=== PATIENT | male | born 1985 | race Caucasian/White ===

== ENCOUNTER 2021-01-02 07:53 | Outpatient (CLI) | payer OTHER, SELFPAY ==
[2021-01-02 08:35] LABS: Basophils Absolute Auto 0.1 K/mm3 (0.0-0.1); Basophils Percent Auto 0.7 % (0.2-1.2); Eosinophils Absolute Auto 0.4 K/mm3 (0-0.3); Eosinophils Percent Auto 4.8 % (0-4.4); Hematocrit 48.2 % (42.0-52.0); Hemoglobin 16.1 g/dL (14.0-18.0); Immature Granulocyte Absolute 0.03 K/mm3 (0.00-0.031); Immature Granulocyte Percent A 0.4 % (0-0.5); Lymphocytes Absolute Auto 2.39 K/mm3 (0.9-3.2); Lymphocytes Percent Auto 28.9 % (18.3-44.2); Mean Corpuscular HGB Conc 33.4 g/dl (32-36); Mean Corpuscular Hemoglobin 29.2 pg (26-34); Mean Corpuscular Volume 87.5 fl (80-100); Mean Platelet Volume 10.8 fl (7.4-10.4); Monocytes Absolute Auto 0.7 K/mm3 (0.1-0.6); Monocytes Percent Auto 8.4 % (2.6-8.5); Neutrophils Absolute Auto 4.7 K/mm3 (1.3-6.7); Neutrophils Percent Auto 56.8 % (45.5-73.1); Platelet Count Result 234 k/mm3 (150-375); Red Blood Count 5.51 M/mm3 (4.6-6.20); Red Cell Distribution Width 12.6 % (11.5-14.5); White Blood Count 8.3 K/mm3 (4.5-10.0)
[2021-01-02 08:36] LABS: Add Urine Microscopic? NO; Appearance Urine Clear (Clear); Bilirubin Urine Negative (Negative); Blood Urine Negative (Negative); Color Urine Yellow (Yellow); Glucose Urine UA Negative (Negative); Ketones Urine Negative (Negative); Leukocyte Esterase Ur Negative LEU/UL (NEGATIVE); Nitrate Urine Negative (Negative); Protein Urine Negative (Negative); Specific Grav Ur 1.023 (1.001-1.035); Urobilinogen Urine Negative mg/dL (<2.0)
[2021-01-02 08:46] LABS: Hemoglobin A1C 5.6 % (<5.7)
[2021-01-02 08:47] LABS: Alanine Aminotransferase 45 U/L (4-50); Albumin Level 4.4 g/dL (3.5-5.1); Alkaline Phosphatase 66 U/L (38-126); Amylase 75 U/L (30-110); Anion Gap 7 mmol/L (8-16); Aspartate Amino Transferase 26 U/L (17-59); Bilirubin,Total 0.3 mg/dL (0.2-1.3); Blood Urea Nitrogen 14 mg/dL (9-20); Calcium 10.1 mg/dL (8.4-10.2); Carbon Dioxide 28 mmol/L (22-30); Chloride 108 mmol/L (98-107); Estimated Glomerular Filt Rate > 60; Glucose 117 mg/dL (75-110); Lipase 125 U/L (23-300); Sodium 143 mmol/L (137-145)
== END 2021-01-02 07:54 | disposition home or self-care (01) ==
PROVIDERS: PCP Family Medicine; Visit Provider Physician Assistant
DX: R10.9 Unspecified abdominal pain (principal); R73.01 Impaired fasting glucose
CPT/HCPCS: 36415; 80053; 81003; 82150; 83036; 83690; 84443; 85025; 87086

== ENCOUNTER → 2021-01-10 10:11 | Outpatient (CLI) | payer OTHER, SELFPAY ==
--- NOTE | ~2021-01-10 | CT_ITS ---
EXAMINATION: CT abdomen pelvis w con DATE: 01/10/2021 10:34 INDICATION: Abdominal pain TECHNIQUE: Computed tomography (CT) of the abdomen and pelvis was performed with 100 cc Omnipaque 350 intravenous contrast. The dose-length product was 1156.87 mGy-cm. Automated exposure control and ite rative reconstruction technique were employed. COMPARISON: CT dated 02/18/2019 FINDINGS: Lung bases are unremarkable. Heart size normal. No significant pleural or pericardial effus ion. No significant vascular abnormality. No lymphadenopathy. Fatty infiltration of the liver. Gallbladder is present. The spleen, pancreas, adrenal glands and kid neys are unremarkable. Nonobstructive bowel gas pattern. Normal appendix. No free air or free fluid. No acute bone or joint abnormality. IMPRESSION: 1. No acute abdominal abnormality. Reviewed, dictated and finalized at location B.
== END ==
PROVIDERS: PCP Family Medicine; Visit Provider Physician Assistant
DX: R10.9 Unspecified abdominal pain (principal)
CPT/HCPCS: 74177; Q9967

== ENCOUNTER 2022-02-09 02:57 | Emergency (ER) | payer OTHER, SELFPAY ==
[2022-02-09 03:01] VITALS: BP 175/114; PULSE 77; RESP 18; TEMP 36.3; O2SAT 98
[2022-02-09] MEDS: HYDROcodone/acetaminophen (*CRX) 5-325 MG TABLET 1 TAB PO (03:16)
[2022-02-09] MEDS: NEOMYCIN/POLYMYXIN/HYDROCORT OT SUSP 10 ML BTL (*BKC) 3 DROP LEFT EAR (03:33)
--- NOTE | 2022-02-09 03:38 | ED.EAR ---
HPI - Ear Problem General Chief complaint: Ear Stated complaint: ear pain Time Seen by Provider: 02/09/22 03:04 Source: RN notes reviewed History of Present Illness HPI Narrative: Patient presents emergency department from home for left ear pain. Patient states that last week he was [place] and he states he began to have some aching in his ear this past Friday the became worse over the past several days. He had gone to his primary care physician today is diagnosed with otitis externa started on eardrops as well as oral antibiotics states has been using the eardrops and antibiotics with the pain became worse this evening and came to the ER for further evaluation states he had taken ibuprofen at home he denies any fevers or chills rhinorrhea sore throat or any other symptoms Related Data Allergies Allergy/AdvReac Type Severity Reaction Status Date / Time No Known Allergies Allergy Verified 02/09/22 03:05 Review of Systems Review of Systems: Gen.: Denies fevers or chills HEENT: See HPI Respiratory: Denies cough Neuro: Denies numbness, tingling, weakness Skin: Denies rash Endo: Denies DM Except as documented, all other systems reviewed and negative [facility] Past Medical History Medical History Multiple fractures of ribs, right side, initial encounter for closed fracture Social History Social History Social History: Smoking status: Former smoker Tobacco type: cigarettes Second hand tobacco smoke exposure: No Smoking end date: 08/04/16 Additional smoking assessment comments: Pt is a social smoker. Alcohol intake: current Drinks per week: 8 Substance use: current Substance use type: marijuana Last use: Pt smoked marijuana this morning. Gender identity (if verbalized by the patient): Male Sexual Orientation (if Verbalized by the Patient): Straight or Heterosexual Exam Narrative: APPEARANCE: No acute distress, nontoxic, resting in bed EYES: EOMI HEENT: Normocephalic, atraumatic, right TM is normal appearance, the left ear hurts with pulling on the earlobe the ear canal is severely swollen and unable to visualize the tympanic membrane nares patent oral mucosa moist RESPIRATORY: No respiratory distress MUSCULOSKELETAl: Moves all extremities. NEURO: Awake and alert. Following commands, speech normal, no focal deficits SKIN:: Warm, dry. No rashes lesions or abrasions PSYCHIATRIC: Normal affect/mood, Course Course Emergency Course: Reviewed old records the patient was seen today and was prescribed Augmentin p.o. as well as Cortisporin attic Procedure note: A ear wick was placed in the left ear patient tolerated the procedure well Discussed with patient results of workup and diagnosis. Discussed need for follow-up with primary care, proper use of medication, and reasons to return to the emergency department. Patient understands and agrees to current treatment plan discussed with patient need to continue to use eardrops as prescribed Vital Signs Vital signs: Vital Signs Temperature 97.4 F L 02/09/22 03:01 Pulse Rate 77 02/09/22 03:01 Respiratory Rate 18 02/09/22 03:01 Blood Pressure 175/114 H 02/09/22 03:01 Pulse Oximetry 98 02/09/22 03:01 Oxygen Delivery Room Air 02/09/22 03:01 Temperature 97.4 F L 02/09/22 03:01 Pulse Rate 77 02/09/22 03:01 Respiratory Rate 18 02/09/22 03:01 Blood Pressure 175/114 H 02/09/22 03:01 Pulse Oximetry 98 02/09/22 03:01 Oxygen Delivery Room Air 02/09/22 03:01 Medical Decision Making Vital Signs Vital Signs: Vital Signs Temperature 97.4 F L 02/09/22 03:01 Pulse Rate 77 02/09/22 03:01 Respiratory Rate 18 02/09/22 03:01 Blood Pressure 175/114 H 02/09/22 03:01 Pulse Oximetry 98 02/09/22 03:01 Oxygen Delivery Room Air 02/09/22 03:01 Temperature 97.4 F L 02/09/22 03:01 P
== END 2022-02-09 03:49 | disposition home or self-care (01) ==
PROVIDERS: Emergency Provider Emergency Medicine; PCP Family Medicine
DX: H60.92 Unspecified otitis externa, left ear (principal); F17.210 Nicotine dependence, cigarettes, uncomplicated
CPT/HCPCS: 99283; A9270

== ENCOUNTER 2022-12-18 08:46 | Emergency (ER) | payer OTHER, SELFPAY ==
[2022-12-18] VITALS (9 sets, daily range): BP systolic 132–156; BP diastolic 72–88; PULSE 68–94; RESP 11–18; TEMP 36.7; O2SAT 98–100
--- NOTE | ~2022-12-18 | CT_ITS ---
EXAMINATION: CT abdomen pelvis w con DATE: 12/18/2022 10:01 INDICATION: Right upper quadrant abdominal pain. TECHNIQUE: Computed tomography (CT) of the abdomen and pelvis was performed with 100 mL Omnipaque 350 intravenous contrast. Automated exposure control and iterative reconstruction technique were employe d. The dose-length product was 1399.66 mGy-cm. COMPARISON: CT abdomen and pelvis 01/10/2021 FINDINGS: The visualized portions of the lung bases demonstrate minimal atelectasis on the left. No p leural effusion. The heart size is normal. No pericardial effusion. There is a 7 mm cyst in the liver . There is diffuse hepatic steatosis. The spleen, pancreas, and left adrenal gland are normal. There is an 8 mm mass of fat in right adrenal gland, consistent with a myelolipoma. The kidneys are normal. There are bilateral inguinal hernias containing fat. There are no dilated loops of bowel. The append ix is normal. There are no pathologically enlarged lymph nodes. There is no free intraperitoneal flui d. There is mild thoracic and lumbar spondylosis. IMPRESSION: 1. Diffuse hepatic steatosis. 2. Bilateral inguinal hernias containing fat. Reviewed, dictated and finalized at location A.
--- NOTE | ~2022-12-18 | US_ITS ---
US abdomen limited INDICATION: Right upper quadrant pain. Steatosis. PROCEDURE: Realtime right upper abdominal ultrasound. COMPARISON: No prior studies for comparison. FINDINGS: The pancreas is normal without focal mass or pancreatic ductal dilation. Liver echotexture is increased, consistent with fatty infiltration. There is normal directional flow in the portal ve in. The gallbladder is normal without stones, gallbladder wall thickening or pericholecystic fluid. Comm on bile duct measures 4 mm. No sonographic Farrar's sign. IMPRESSION: 1: Hepatic steatosis. Reviewed, dictated and finalized at location B. IMPRESSION: 1: Hepatic steatosis.
--- NOTE | ~2022-12-18 | XR_ITS ---
EXAMINATION: XR chest 2V 12/18/2022 09:12 INDICATION: Right chest pain PROCEDURE: 2 view chest COMPARISON: 09/07/2009 FINDINGS: The lungs are clear. The cardiomediastinal silhouette is within normal limits. There are no pleural effusions. There is no pneumothorax suspected. IMPRESSION: 1: NO ACUTE CARDIOPULMONARY DISEASE. Reviewed, dictated and finalized at location B.
--- NOTE | 2022-12-18 08:47 | ECG_ITS ---
Measurements Intervals [place] Rate: 84 P: 20 CO: 126 QRS: 13 QRSD: 97 T: -1 QT: 353 QTc: 419 Interpretive Statements SINUS RHYTHM INCOMPLETE RIGHT BUNDLE BRANCH BLOCK BORDERLINE ST-T WAVE ABNORMALITY- DIFFUSE LEADS BASELINE WANDER- V3 BORDERLINE ECG NO PREVIOUS ECG AVAILABLE FOR COMPARISON Electronically Signed On 12-18-2022 9:44:10 CDT by José Miguel Hinojosa D.O.
--- NOTE | 2022-12-18 09:08 | ED.CHESTPAIN ---
HPI - Chest Pain General Chief Complaint: Chest Pain Stated Complaint: R sided chest pain Time Seen by Provider: 12/18/22 08:55 Source: patient Mode of arrival: ambulatory Limitations: no limitations History of Present Illness HPI narrative: This is a 37-year-old male who presents to the ED with chief complaint of right lower chest pain beginning 2 days ago. Patient states he was eating lunch and sitting down when this pain started. He notices some worsening of the pain with deeper breathing. He states the pain is located in the right lower ribs area near the right upper quadrant. Denies any radiation. Denies vomiting or sweats. Denies shortness of breath. States he eats a lot of greasy food, but is unsure if this made things worse. 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 Endorses a lot of stress with work. States he had chest pain in the past and was told he had anxiety. Denies leg swelling, palpitations, fevers, chills, diarrhea, cough. No known heart history. Thinks that he may have some heart disease on his father's side of the family. Related Data Allergies Allergy/AdvReac Type Severity Reaction Status Date / Time No Known Allergies Allergy Verified 02/09/22 03:05 Review of Systems Review of Systems: CONSTITUTIONAL: Denies fever, chills, or sweats. EYES: Denies visual changes, redness, or discharge. ENT: Denies rhinorrhea, congestion, sore throat, or otalgia. CARDIOVASCULAR: See HPI RESPIRATORY: Denies cough or dyspnea. GASTROINTESTINAL: See HPI GENITOURINARY: Denies dysuria or hematuria. SKIN: Denies rash or itching. MUSCULOSKELETAL: Denies back pain, joint pain, or myalgia. NEUROLOGIC: Denies headache, numbness, dizziness, or weakness. PSYCHIATRIC: Denies anxiety or depression. [facility] Past Medical History Medical History Multiple fractures of ribs, right side, initial encounter for closed fracture Social History Social History Social History: Smoking status: Former smoker Tobacco type: cigarettes Second hand tobacco smoke exposure: No Smoking end date: 08/04/16 Additional smoking assessment comments: Pt is a social smoker. Alcohol intake: current Drinks per week: 8 Substance use: current Substance use type: marijuana Last use: Pt smoked marijuana this morning. Living arrangements: with family Occupation/Education: occupation Gender identity (if verbalized by the patient): Male Sexual Orientation (if Verbalized by the Patient): Straight or Heterosexual Exam Narrative: GENERAL: Well-appearing, well-nourished, and in no acute distress. No diaphoresis. HEAD: Normocephalic, atraumatic. EYES: PERRLA and EOMI. ENT: Nares clear, no rhinorrhea or epistaxis. Mucous membranes moist. Oropharynx without tonsillar hypertrophy exudate or other lesions. NECK: Supple. No adenopathy or masses. CHEST: No respiratory distress. Clear to auscultation. No wheezes rales or rhonchi HEART: Regular rate and rhythm. No murmur heard. Normal peripheral pulses. ABDOMEN: Does have some tenderness in the right upper quadrant. Equivocal Farrar sign. Negative McBurney's point. Negative peritoneal signs. Soft, nondistended, normal active bowel sounds. MSK: Normal range of motion. No edema. SKIN: Warm, dry, no rash. NEURO: Alert and oriented x3. No focal deficits. PSYCH: Normal mood and affect. Course Course Emergency Course: Reevaluation 1100: Reports the pain is at a 1 or 2 out of 10. States it is specifically worsened with certain positions. Vital Signs Vital signs: Vital Signs Pulse Rate 88 12/18/22 08:56 Respiratory Rate 18 12/18/22 08:56 Blood Pressure 156/88 H 12/18/22 08:56 Pulse Oximetry 98 12/18/22 08:56 Temperature 98.1 F 12/18/22 09:00 Pulse Rate 78 12/18/22 12:45 Respiratory Rate 16 12/18/22 1
[2022-12-18 09:15] LABS: Basophils Absolute Auto 0.1 K/mm3 (0.0-0.1); Basophils Percent Auto 0.7 % (0.2-1.2); Eosinophils Absolute Auto 0.3 K/mm3 (0-0.3); Eosinophils Percent Auto 3.2 % (0-4.4); Hematocrit 50.2 % (42.0-52.0); Hemoglobin 16.9 g/dL (14.0-18.0); Immature Granulocyte Absolute 0.03 K/mm3 (0.00-0.031); Immature Granulocyte Percent A 0.3 % (0-0.5); Lymphocytes Absolute Auto 2.49 K/mm3 (0.9-3.2); Lymphocytes Percent Auto 23.8 % (18.3-44.2); Mean Corpuscular HGB Conc 33.7 g/dl (32-36); Mean Corpuscular Hemoglobin 29.5 pg (26-34); Mean Corpuscular Volume 87.6 fl (80-100); Mean Platelet Volume 10.4 fl (7.4-10.4); Monocytes Absolute Auto 0.7 K/mm3 (0.1-0.6); Neutrophils Absolute Auto 6.8 K/mm3 (1.3-6.7); Platelet Count Result 273 k/mm3 (150-375); Red Blood Count 5.73 M/mm3 (4.6-6.20); Red Cell Distribution Width 12.9 % (11.5-14.5); White Blood Count 10.5 K/mm3 (4.5-10.0)
[2022-12-18 09:28] LABS: Alanine Aminotransferase 82 U/L (6-50); Albumin Level 4.6 g/dL (3.5-5.1); Alkaline Phosphatase 94 U/L (38-126); Anion Gap 8 mmol/L (8-16); Aspartate Amino Transferase 38 U/L (17-59); Bilirubin,Total 0.7 mg/dL (0.2-1.3); Blood Urea Nitrogen 14 mg/dL (9-20); Calcium 9.3 mg/dL (8.4-10.2); Carbon Dioxide 26 mmol/L (22-30); Chloride 104 mmol/L (98-107); Estimated Glomerular Filt Rate > 60; Glucose 112 mg/dL (65-110); Lipase 107 U/L (23-300); Potassium 4.1 mmol/L (3.4-5.0); Sodium 138 mmol/L (137-145)
[2022-12-18 09:36] LABS: INR 0.9; Prothrombin Time 12.5 Seconds (11.1-14.7)
[2022-12-18 09:37] LABS: Partial Thromboplastin Time 29.8 SECONDS (22.3-36.8)
[2022-12-18 09:38] LABS: Troponin I < 0.012 ng/mL (0.000-0.034)
[2022-12-18] MEDS: ASPIRIN 81 MG CHEWABLE TABLET 324 MG PO (09:43)
[2022-12-18 12:23] LABS: Troponin I < 0.012 ng/mL (0.000-0.034)
== END 2022-12-18 12:45 | disposition home or self-care (01) ==
PROVIDERS: Emergency Medicine; Emergency Provider Physician Assistant; PCP Family Medicine
DX: K76.0 Fatty (change of) liver, not elsewhere classified (principal); Z87.891 Personal history of nicotine dependence
CPT/HCPCS: 36415; 71046; 74177; 76705; 80053; 83690; 84484; 85025; 85610; 85730; 93005; 99284; A9270; Q9967